=== PATIENT | female | born 1950 | race Caucasian/White ===

== ENCOUNTER → 2017-03-14 | Outpatient (CLI) | payer OTHER ==
[2017-03-14 10:51] LABS: BASOPHILS # (AUTO) 0.1 X10^3/uL (0.0-0.1); BASOPHILS % (AUTO) 0.7 % (0.2-1.0); EOSINOPHILS % (AUTO) 0.1 % (0.9-2.9); HEMATOCRIT 45.7 % (36.0-47.0); HEMOGLOBIN 15.5 g/dL (12.0-16.0); LYMPHOCYTES # (AUTO) 2.3 X10^3/uL (1.3-2.9); LYMPHOCYTES % (AUTO) 25.8 % (21.0-51.0); MEAN CORPUSCULAR HEMOGLOBIN 31.9 pg (27.0-34.0); MEAN CORPUSCULAR HGB CONC 33.9 g/dL (33.0-35.0); MEAN PLATELET VOLUME 8.2 fL (7.4-11.0); MONOCYTES # (AUTO) 0.4 x10^3/uL (0.3-0.8); MONOCYTES % (AUTO) 4.9 % (0.0-13.0); NEUTROPHILS # (AUTO) 6.1 x10^3/uL (2.2-4.8); NEUTROPHILS % (AUTO) 68.5 % (42.0-75.0); PLATELET COUNT 304 X10^3/uL (150.0-450.0); RED BLOOD COUNT 4.86 X10^6/uL (3.5-5.4); RED CELL DISTRIBUTION WIDTH 13.4 % (11.6-16.5)
[2017-03-14 11:11] LABS: ALANINE AMINOTRANSFERASE 29 Units/L (12-78); ALBUMIN 4.5 g/dL (3.4-5.0); ALKALINE PHOSPHATASE 104 Units/L (46-116); ASPARTATE AMINO TRANSFERASE 16 Units/L (15-37); BLOOD UREA NITROGEN 13 mg/dL (7-18); CALCIUM 9.9 mg/dL (8.5-10.1); CARBON DIOXIDE 29.6 mmol/L (21-32); CHLORIDE 105 mmol/L (98-107); CHOL/HDL RATIO 2.8 (0.0-5.0); CHOLESTEROL 225 mg/dL (0-200); CREATININE 0.89 mg/dL (0.55-1.02); FREE T4 (FREE THYROXINE) 0.75 ng/dL (0.76-1.46); GLUCOSE 106 mg/dL (65-99); HDL CHOLESTEROL 79 mg/dL (40-60); SODIUM 142 mmol/L (136-145); TOTAL PROTEIN 8.8 g/dL (6.4-8.2); TRIGLYCERIDES 113 mg/dL (0-150); TSH (3RD GENERATION) 1.351 uIU/mL (0.358-3.74); eGFR BLACK RACES > 60 (>60); eGFR NON BLACK RACES > 60 (>60)
[2017-03-14 11:41] LABS: IRON 138 ug/dL (50-175); TOTAL IRON BINDING CAPACITY 447 ug/dL (250-450)
[2017-03-19 06:25] LABS: ESTROGENS TOTAL 70.7 pg/mL; METHYLMALONIC ACID 0.13 umol/L (0.00-0.40)
== END ==
LOC: MERGE 09:38 → RAD 09:38
PROVIDERS: ATTEND Nurse Practitioner Family
DX: Z00.00 Encounter for general adult medical examination without abnormal findings (principal); Z12.31 Encounter for screening mammogram for malignant neoplasm of breast; E03.8 Other specified hypothyroidism; E55.9 Vitamin D deficiency, unspecified; R53.83 Other fatigue; G44.209 Tension-type headache, unspecified, not intractable; Z79.890 Hormone replacement therapy; D53.8 Other specified nutritional anemias
CPT/HCPCS: 36415; 77067; 80053; 80061; 82306; 82607; 82671; 82728; 82746; 83540; 83550; 83918; 84439; 84443; 84481; 85025

== ENCOUNTER → 2017-05-17 | Outpatient (CLI) | payer OTHER ==
[2017-03-14 11:59] VITALS: BP 135/77
[2017-05-17 10:34] LABS: BASOPHILS % (AUTO) 0.8 % (0.2-1.0); EOSINOPHILS # (AUTO) 0.1 x10^3/uL (0.0-0.2); EOSINOPHILS % (AUTO) 2.8 % (0.9-2.9); HEMATOCRIT 40.7 % (36.0-47.0); HEMOGLOBIN 13.8 g/dL (12.0-16.0); LYMPHOCYTES # (AUTO) 2.2 X10^3/uL (1.3-2.9); LYMPHOCYTES % (AUTO) 46.2 % (21.0-51.0); MEAN CORPUSCULAR HGB CONC 33.8 g/dL (33.0-35.0); MEAN CORPUSCULAR VOLUME 94.6 fL (80.0-100.0); MEAN PLATELET VOLUME 8.7 fL (7.4-11.0); MONOCYTES # (AUTO) 0.3 x10^3/uL (0.3-0.8); MONOCYTES % (AUTO) 7.3 % (0.0-13.0); NEUTROPHILS % (AUTO) 42.9 % (42.0-75.0); PLATELET COUNT 235 X10^3/uL (150.0-450.0); RED CELL DISTRIBUTION WIDTH 13.8 % (11.6-16.5); WHITE BLOOD COUNT 4.8 X10^3/uL (3.6-10.0)
--- NOTE | 2017-05-17 10:42 | RAD ---
HISTORY: Shortness of breath Study: Chest two-view Comparison: February 08, 2016 Findings: The trachea is midline. The cardiac silhouette is unremarkable. The lungs are hyperinflated but fr ee of acute alveolar infiltrates. No pleural effusions are identified.. The bony thorax is unremark able. IMPRESSION: 1. Lungs hyperinflated but clear Reported By:
[2017-05-17 10:48] LABS: B-TYPE NATRIURETIC PEPTIDE 31.6 pg/mL (0-79)
[2017-05-17 11:01] LABS: ALANINE AMINOTRANSFERASE 25 Units/L (12-78); ALBUMIN 3.6 g/dL (3.4-5.0); ALKALINE PHOSPHATASE 91 Units/L (46-116); ASPARTATE AMINO TRANSFERASE 21 Units/L (15-37); BLOOD UREA NITROGEN 18 mg/dL (7-18); CALCIUM 8.4 mg/dL (8.5-10.1); CARBON DIOXIDE 25.2 mmol/L (21-32); CHLORIDE 109 mmol/L (98-107); CREATININE 0.85 mg/dL (0.55-1.02); GLUCOSE 90 mg/dL (65-99); SODIUM 144 mmol/L (136-145); TOTAL PROTEIN 7.1 g/dL (6.4-8.2); TSH (3RD GENERATION) 2.854 uIU/mL (0.358-3.74); eGFR BLACK RACES > 60 (>60); eGFR NON BLACK RACES > 60 (>60)
[2017-05-17 11:36] LABS: ERYTHROCYTE SEDIMENTATION RATE 8 MM/HOUR (0-20)
[2017-05-17 11:58] LABS: MYCOPLASMA PNEUMONIAE IGM AB NEGATIVE (NEGATIVE)
[2017-05-23 07:33] LABS: ANTI-NUCLEAR ANTIBODY TEST None Detected (None Detected)
== END | disposition home or self-care (01) ==
LOC: LAB 09:11
PROVIDERS: ATTEND Nurse Practitioner Family
DX: R06.02 Shortness of breath (principal); E03.8 Other specified hypothyroidism
CPT/HCPCS: 36415; 71020; 80053; 83880; 84443; 85025; 85652; 86308; 86738

== ENCOUNTER → 2017-08-08 | Outpatient (CLI) | payer OTHER ==
[2017-03-14 11:59] VITALS: BP 135/77
[~2017-08-08] MED LIST: NS 100 ML IV 100 ML IV ONE
--- NOTE | 2017-08-09 10:20 | CT ---
HISTORY: Abnormal MRI. Dizziness. Study: CT angiogram of the brain with and without contrast. Comparison: MR brain dated 11/29/2016. CTA of the neck dated 12/05/2016. Technique: Multiple axial images of the brain were obtained from the skull base to above the level of the [place] prior to and after the administration of IV contrast. 3D MIP images of the intracranial ar terial vasculature were obtained. Re-formatted images in sagittal and coronal planes were performed a s well. Findings: Noncontrast CT head: It should be noted that the cranial most portions of the brain are not included on the current exam. No acute intraparenchymal hemorrhage or mass can be identified within the included portions of the br ain. No extra-axial fluid collections are seen. No alteration in the attenuation of the included po rtions of the brain parenchyma can be identified to suggest acute or subacute ischemic change. The v entricular system is symmetric and nondilated. The included extracranial structures are grossly unre markable. CTA head: There is a focal dissection of the internal carotid artery on the right near the base of C1 (image 7 series 12). Similar-appearing focal dissection of the internal carotid artery on the left is also not ed near the same level (image 5 series 12). There is an abnormal appearance of the included portions of the proximal and mid portions of the cervical internal carotid arteries bilaterally which demonstr ate alternating areas of narrowing and dilatation resulting in a string of beads appearance most comp atible with fibromuscular dysplasia. A medium vessel vasculitis could be considered as well. Digital subtraction angiography is recommended for further evaluation. The left vertebral artery below the level of the skullbase is not opacified compatible with complete occlusion. There is reconstitution of the intracranial portion of the left vertebral artery from the right vertebral artery which is patent. The anterior circulation of the intracranial arterial vasculature is grossly unremarkable. There is n o flow-limiting stenosis, dissection or aneurysm of the intracranial portions of the internal carotid arterys, M1 segments or A1 segments. There is no significant posterior communicating artery on the r ight or left. The basilar artery and P1 segments are patent bilaterally without evidence of flow-limi ting stenosis. 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 Focal dissection of the internal carotid artery on the left near the base of C1. Abnormal appearance of the proximal to mid portions of the cervical internal carotid arteries bilater ally suggestive of fibromuscular dysplasian (FMD). A medium vessel vasculitis could be considered as well, but is thought to be less likely. Digital subtraction angiography (DSA) is recommended for furt her evaluation. 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 Reported By:
== END | disposition home or self-care (01) | DRG 564 ==
LOC: RAD 09:06
PROVIDERS: ATTEND Nurse Practitioner Family
DX: R93.7 Abnormal findings on diagnostic imaging of other parts of musculoskeletal system (principal); I77.71 Dissection of carotid artery
CPT/HCPCS: 36415; 70496; 82565; 84520; A4222

== ENCOUNTER → 2017-08-15 | Outpatient (CLI) | payer OTHER ==
[2017-03-14 11:59] VITALS: BP 135/77
== END ==
LOC: RAD 13:26 → RT 13:26
PROVIDERS: ATTEND Nurse Practitioner Family
DX: R42 Dizziness and giddiness (principal)
CPT/HCPCS: 95819

== ENCOUNTER 2021-09-22 12:22 | Inpatient (IN) ==
[2021-09-22 17:50] VITALS: BMI 23.9
[2021-09-22] MEDS ORDERED: SOLU-Medrol 125 MG VIAL IVP ONE (18:12)
[2021-09-22] MEDS ORDERED: TUSSIONEX PENNKINETIC SUSP PO PRN (18:19)
[2021-09-22] MEDS: ROBITUSSIN DM PO SCH ×2 (18:46→20:56)
[2021-09-22] MEDS: NS 1,000 ML IV 1,000 ML IV SCH (18:46)
[2021-09-22] MEDS: ROCEPHIN 1 GRAM IV PREMIX 1 G/50 ML IV.SOLN. IV SCH (18:46)
[2021-09-22 18:48] LABS: BASOPHILS % (AUTO) 0.6 % (0.2-1.0); EOSINOPHILS % (AUTO) 0.7 % (0.9-2.9); HEMOGLOBIN 12.2 g/dL (12.0-16.0); LYMPHOCYTES # (AUTO) 2.5 X10^3/uL (1.3-2.9); MEAN CORPUSCULAR HEMOGLOBIN 31.8 pg (27.0-34.0); MEAN CORPUSCULAR HGB CONC 33.8 g/dL (33.0-35.0); MEAN CORPUSCULAR VOLUME 94.1 fL (80.0-100.0); MEAN PLATELET VOLUME 8.2 fL (7.4-11.0); MONOCYTES # (AUTO) 0.4 x10^3/uL (0.3-0.8); MONOCYTES % (AUTO) 6.6 % (0.0-13.0); NEUTROPHILS # (AUTO) 3.2 x10^3/uL (2.2-4.8); NEUTROPHILS % (AUTO) 51.1 % (42.0-75.0); PLATELET COUNT 257 X10^3/uL (150.0-450.0); RED BLOOD COUNT 3.83 X10^6/uL (3.5-5.4); RED CELL DISTRIBUTION WIDTH 14.2 % (11.6-16.5); WHITE BLOOD COUNT 6.2 X10^3/uL (3.6-10.0)
[2021-09-22 19:17] LABS: ALANINE AMINOTRANSFERASE 21 Units/L (12-78); ALBUMIN 3.7 g/dL (3.4-5.0); ALKALINE PHOSPHATASE 87 Units/L (46-116); ASPARTATE AMINO TRANSFERASE 17 Units/L (15-37); BLOOD UREA NITROGEN 14 mg/dL (7-18); CALCIUM 8.7 mg/dL (8.5-10.1); CHLORIDE 108 mmol/L (98-107); CKMB % 1.8 % (<4); CREATINE KINASE 56 Units/L (26-192); CREATINE KINASE MB < 1.0 ng/mL (0-4.0); MAGNESIUM 2.1 mg/dL (1.7-2.9); SODIUM 143 mmol/L (136-145); TOTAL PROTEIN 6.8 g/dL (6.4-8.2); TROPONIN I < 0.02 ng/mL (0-1.5); eGFR NON BLACK RACES > 60 (>60)
[2021-09-22] MEDS: ZITHROMAX INJ 500 MG VIAL 500 MG in NS 250 ML IV 250 ML IV SCH (19:50)
[2021-09-22] MEDS: PULMICORT NEB TX 0.5 MG NEB SCH (21:03)
[2021-09-22] MEDS: DUONEB 0.5 MG/3 MG (3 mL) NEB SCH (21:03)
[2021-09-23] MEDS ORDERED: SOLU-Medrol 40 MG VIAL IVP SCH (06:00)
[2021-09-23 06:44] LABS: BASOPHILS % (AUTO) 0.2 % (0.2-1.0); HEMATOCRIT 37.7 % (36.0-47.0); HEMOGLOBIN 12.7 g/dL (12.0-16.0); LYMPHOCYTES % (AUTO) 23.5 % (21.0-51.0); MEAN CORPUSCULAR HGB CONC 33.7 g/dL (33.0-35.0); MEAN CORPUSCULAR VOLUME 94.8 fL (80.0-100.0); MEAN PLATELET VOLUME 8.4 fL (7.4-11.0); MONOCYTES # (AUTO) 0.1 x10^3/uL (0.3-0.8); MONOCYTES % (AUTO) 1.2 % (0.0-13.0); NEUTROPHILS # (AUTO) 3.1 x10^3/uL (2.2-4.8); NEUTROPHILS % (AUTO) 75.1 % (42.0-75.0); PLATELET COUNT 230 X10^3/uL (150.0-450.0); RED BLOOD COUNT 3.98 X10^6/uL (3.5-5.4); RED CELL DISTRIBUTION WIDTH 14.1 % (11.6-16.5); WHITE BLOOD COUNT 4.1 X10^3/uL (3.6-10.0)
[2021-09-23 07:02] LABS: ALANINE AMINOTRANSFERASE 19 Units/L (12-78); ALBUMIN 3.6 g/dL (3.4-5.0); ALKALINE PHOSPHATASE 80 Units/L (46-116); ASPARTATE AMINO TRANSFERASE 16 Units/L (15-37); BLOOD UREA NITROGEN 13 mg/dL (7-18); CALCIUM 8.8 mg/dL (8.5-10.1); CARBON DIOXIDE 20.6 mmol/L (21-32); CHLORIDE 107 mmol/L (98-107); COR NA(FOR HYPERGLY) 141 mmol/L (136-145); CREATININE 0.72 mg/dL (0.55-1.02); SODIUM 140 mmol/L (136-145); TOTAL PROTEIN 6.9 g/dL (6.4-8.2); eGFR NON BLACK RACES > 60 (>60)
--- NOTE | 2021-09-23 07:22 | CT ---
HISTORYLeft basilar opacity on x-ray, congestionSTUDYCT chest with IV contrastCOMPARISONX-ray 09/15/2021TECHNIQUEMultiple axial images of the chest were obtained from the thoracic inlet to the upper abdomenwith the administration of IV contrast. 100 cc Omnipaque 350 IV contrast. Sagittal and coronal reformations are performed. Dose reduction techniques including Automated Exposure Control (AEC) and adjustment of mA and kV were utilized.FINDINGSThere is very minimal linear atelectasis in the left lower lobe and left lingula that extends to the diaphragm. This accounts for the appearance on x-ray. It may be associated with prior left rib fractures is there is deformity of left ribs. No evidence of pleural effusion, pleural thickening, or pneumonia is seen. Trace thickening is seen in the right major fissure inferiorly.There is a 3.0 mm left apical lung nodule on image 11 of series 5. A ground-glass nodule measuring 3.5 mm is seen in the left lung apex on image 13 1.0 mm subpleural nodule is seen in the left upper lobe on image 18. Another tiny 1.5 mm nodule is seen in the right CP angle on image 55.No mediastinal lymphadenopathy. Heart and thoracic aorta are normal in size. There is no evidence of aortic dissection. There is a small hiatus hernia. 25 percent anterior compression deformity of L1 appears old.IMPRESSIONMild atelectasis at the left lung base is probably associated with old healed left-sided rib fractures, as there is mild deformity of these ribs. No evidence of pleural thickening, pleural effusion, or pneumonia is seen.Multiple tiny lung nodules are seen. One of these is ground-glass density. According to the 2017 Fleischner criteria, CT at 6 months is recommended. If stable, consider CT at 2 and 4 years.Electronically signed by: Harris Marquez (Sep 23, 2021 07:21:12)
--- NOTE | 2021-09-23 08:22 | DR.H&P ---
H&P History & Physical for Day of: H&P Date: 09/22/21 Chief Complaint Chief Complaint: Chest Congestion Allergies Allergies Allergy/AdvReac Type Severity Reaction Status Date / Time No Known Drug Allergies Allergy Verified 02/10/20 20:09 History of Present Illness History of Present Illness: This is a 71 yo white female. She presented to office today with continued chest congestion. She had been treated as an outpatient with Cefuroxime and a Medrol dose pack. It has not cleared up her lungs at this time. She does have a history of asthma as well. Currently she is having harsh breathing with audible wheezing in the office heard without a stethoscope. These symptoms have been persisting for around 1 month now. She also had a recent CXR which showed a left based pleural thickening which she will need a CT chest with and without contrast for further characterization. She also reports intermittent episodes of substernal pressure in the chest relieved with rest and MAYA. Auscultation reveals she has diffuse expiratory wheezing with diffuse rhonchi in both lungs. Past Medical History Past Medical History: Arthritis, Asthma, Migraines, Hypertension and Hypothyroidism Past Surgical History Surgical History: Other Family History Family Medical History: Hypertension Family History Comment: Migraine headaches, Hypothyroidism, Depression, Asthma, Seizure disorder. Social History Does patient currently use any type of tobacco product: No Have you used tobacco products in the last 12 months: No Type of Tobacco Use: None Does any household member use tobacco: No Alcohol Use: None Medications Home Medications: No Known Drug Allergies Allergy (Verified 02/10/20 20:09) CONTINUE taking the following medications fluoxetine 40 mg PO DAILY 09/22/21 [History] hydrocodone-acetaminophen 7.5 - 325 tab PO PRN PRN 09/22/21 [History] temazepam 30 mg PO HS 09/22/21 [History] topiramate 50 mg PO BID 09/22/21 [History] Labs Result Diagrams: 09/23/21 06:00 09/23/21 06:00 Labs: 09/22/21 21:40 Sputum - Expectorated Sputum - Final Laboratory WBC 4.1 X10^3/uL (3.6-10.0) 09/23/21 06:00 RBC 3.98 X10^6/uL (3.5-5.4) 09/23/21 06:00 Hgb 12.7 g/dL (12.0-16.0) 09/23/21 06:00 Hct 37.7 % (36.0-47.0) 09/23/21 06:00 MCV 94.8 fL (80.0-100.0) 09/23/21 06:00 MCH 32.0 pg (27.0-34.0) 09/23/21 06:00 MCHC 33.7 g/dL (33.0-35.0) 09/23/21 06:00 RDW 14.1 % (11.6-16.5) 09/23/21 06:00 Plt Count 230 X10^3/uL (150.0-450.0) 09/23/21 06:00 MPV 8.4 fL (7.4-11.0) 09/23/21 06:00 Neut % (Auto) 75.1 % (42.0-75.0) H 09/23/21 06:00 Lymph % (Auto) 23.5 % (21.0-51.0) 09/23/21 06:00 [place] % (Auto) 1.2 % (0.0-13.0) 09/23/21 06:00 Eos % (Auto) 0.0 % (0.9-2.9) L 09/23/21 06:00 Baso % (Auto) 0.2 % (0.2-1.0) 09/23/21 06:00 Neut # (Auto) 3.1 x10^3/uL (2.2-4.8) 09/23/21 06:00 Lymph # (Auto) 1.0 X10^3/uL (1.3-2.9) L 09/23/21 06:00 [place] # (Auto) 0.1 x10^3/uL (0.3-0.8) L 09/23/21 06:00 Eos # (Auto) 0.0 x10^3/uL (0.0-0.2) 09/23/21 06:00 Baso # (Auto) 0.0 X10^3/uL (0.0-0.1) 09/23/21 06:00 Absolute Nucleated RBC 0.1 /100WBC 09/23/21 06:00 Sodium 140 mmol/L (136-145) 09/23/21 06:00 Corrected Sodium 141 mmol/L (136-145) 09/23/21 06:00 Potassium 3.8 mmol/L (3.5-5.1) 09/23/21 06:00 Chloride 107 mmol/L (98-107) 09/23/21 06:00 Carbon Dioxide 20.6 mmol/L (21-32) L 09/23/21 06:00 BUN 13 mg/dL (7-18) 09/23/21 06:00 Creatinine 0.72 mg/dL (0.55-1.02) 09/23/21 06:00 Est GFR (MDRD) Af Amer > 60 (>60) 09/23/21 06:00 Est GFR (MDRD) Non-Af > 60 (>60) 09/23/21 06:00 Glucose 125 mg/dL (65-99) H 09/23/21 06:00 Calcium 8.8 mg/dL (8.5-10.1) 09/23/21 06:00 Corrected Calcium TNP 09/23/21 06:00 Magnesium 2.1 mg/dL (1.7-2.9) 09/22/21 18:30 Total Bilirubin 0.60 mg/dL (0.2-1.0) 09/23/21 06:00 AST 16 Units/L (15-37) 09/23/21 06:00 ALT 19 Units/L (12-78) 09/23/21 06:00 Alkaline Phosphatase 80 Units/L (46-116) 09/23/21 06:00 Creatine Kinase 56 Units/L (26-192) 09/22/21 18:30 CK-MB (CK-2) < 1.0 ng/mL (0-4.0) 09/22/21 18:30 CK/CKMB % Calc 1.8 % (<4) 09/22/21 18:30 Troponin I < 0.02 ng/mL (0-1.5) 09/22/21 18:30 B-Natriuretic Peptide 30.4 pg/mL (0-79) 09/22/21 18:30 Total Protein 6.9 g/dL (6.4-8.2) 09/23/21 06:00 Albumin 3.6 g/dL (3.4-5.0) 09/23/21 06:00 Globulin 3.3 g/dL (2.5-4.5) 09/23/21 06:00 Albumin/Globulin Ratio 1.1 Ratio (1.1-2.1) 09/23/21 06:00 SARS-CoV-2 (PCR) Negative (NEGATIVE) 09/22/21 14:46 Influenza Type A (PCR) Negative (NEGATIVE) 09/22/21 14:46 Influenza Type B (PCR) Negative (NEGATIVE) 09/22/21 14:46 RSV (PCR) Negative (NEGATIVE) 09/22/21 14:46 Review of Systems Constitutional: Weakness and Malaise Eyes: No Symptoms Reported ENT: No Symptoms Reported Respiratory: Cough, Shortness of Breath, SOB with Excertion, Sputum and Wheezing Cardiovascular: Other (Substenal pressure and MAYA) Gastrointestinal: No Symptoms Reported Genitourinary: No Symptoms Reported Musculoskeletal: Other (Chronic back pain.) Skin: No Symptoms Reported Neurological: No Symptoms Reported Physical Exam Vital Signs: Temperature 98.8 F Pulse Rate [Left Brachial] 71 Pulse Rate 58 Respiratory Rate 18 Blood Pressure [Left Arm] 110/68 Blood Pressure 137/71 O2 Sat by Pulse Oximetry 99 Oriented: Normal Eyes: Normal Ear: Normal Nose: Normal Throat: Normal Respiratory: Rhonchi Throughout and Wheezes Throughout Cardiovascular: Normal : Normal Auscultation: Bowel Sounds: Normal Palpation: Normal Tenderness: Normal Skin: Normal Musculoskeletal: Normal Psychiatric: Normal Mood Description: Calm Affect: Normal Speech Pattern: Clear Assessment/Plan (1) Chronic bronchitis: Status: Acute Plan: Admit for failed outpatient RX of Bronchits/Asthma. Start IV Rochphin, Zithromax and IV Solumedrol. Duonebs Q6H Check CBC, CMP, CXR. (2) Asthma: Status: Acute (3) MAYA (dyspnea on exertion): Status: Acute Plan: Serial EKG's and CE's (4) Substernal chest pain: Status: Acute Plan: R/O ME (5) Pleural thickening: Status: Acute Plan: CT chest with PO and IV contrast. Review H&P Reviewed: Yes Patient was examined?: Yes
[2021-09-23] MEDS: DUONEB 0.5 MG/3 MG (3 mL) NEB SCH (09:11)
[2021-09-23] MEDS: PULMICORT NEB TX 0.5 MG NEB SCH (09:11)
[2021-09-23] MEDS: ROCEPHIN 1 GRAM IV PREMIX 1 G/50 ML IV.SOLN. IV SCH (09:15)
[2021-09-23] MEDS: ROBITUSSIN DM PO SCH (09:15)
[2021-09-23] MEDS: ZITHROMAX INJ 500 MG VIAL 500 MG in NS 250 ML IV 250 ML IV SCH (10:30)
[2021-09-23] MEDS ORDERED: RHINOCORT ALLERGY NASAL SPRAY ENOSTRIL SCH (12:00)
[2021-09-23 12:16] VITALS: BP 122/60
[2021-09-23] MEDS: NS 1,000 ML IV 1,000 ML IV SCH (12:18)
[2021-09-23] MEDS ORDERED: ASTELIN NASAL SPRAY ENOSTRIL SCH (14:00)
[2021-09-23] MEDS ORDERED: SINGULAIR TAB 10 MG PO SCH (21:00)
== END 2021-09-23 12:50 | disposition home or self-care (01) | DRG 203 ==
LOC: MED/SURG 14:23
PROVIDERS: ADMIT Family Medicine; ATTEND Family Medicine
DX: E03.8 Other specified hypothyroidism; R94.31 Abnormal electrocardiogram [ECG] [EKG]; Z20.822 Contact with and (suspected) exposure to COVID-19; M94.0 Chondrocostal junction syndrome [Tietze]; I10 Essential (primary) hypertension; J20.8 Acute bronchitis due to other specified organisms; J42 Unspecified chronic bronchitis; R91.8 Other nonspecific abnormal finding of lung field; J45.909 Unspecified asthma, uncomplicated; R07.2 Precordial pain